=== PATIENT | female | born 1940 | race Caucasian/White ===

== ENCOUNTER 2016-09-24 17:01 | Inpatient (IN) | payer MEDICARE, OTHER ==
[~2016-09-24] VITALS: Ht 157.5 cm; Wt 71.7 kg
--- NOTE | ~2016-09-24 | NDGEN ---
PATIENT'S NAME: CONSUELO BOUDREAUX [facility] AGE: 76 Y [address] ROOM: [place] [address] LOCATION: GPCU ADMIT DATE: 09/24/2016 Neurodiagnostics DISCHARGE DATE: FAMILY PHYSICIAN: Crystal Bishop MD ATTENDING PHYSICIAN: Deniz Bolden PROCEDURE: ELECTROENCEPHALOGRAM DATE OF PROCEDURE: 09/27/2016 TEST: TECH: CLINICAL DIAGNOSIS: DURATION OF EE minute. REASON FOR EEG: Seizures. CLINICAL HISTORY: The patient is a 76-year-old female with history of hypertension, alcohol abuse, who was found to have seizure-like episodes and was found to have mental status changes and confusion with muscle stiffening. EEG FINDINGS: The patient is awake for majority of the EEG. During maximal activation background of about 9-10 hertz seen in the posterior head regions which is symmetrical rhythmical waxing and waning. Activation procedures included photic stimulation between 3-30 hertz, which did not show any abnormalities. The patient's EEG also showed excessive beta with more than 50 microvolts in the referential montage seen diffusely. CLASSIFICATION: Abnormal one, awake, 10/20 scalp electrodes. 1. Excessive beta. IMPRESSION: This EEG is mostly within normal limits, the excessive beta seen throughout the recording with secondary to use of medication such as benzodiazepines. Please correlate clinically. No epileptiform discharges or EEG seizures were seen during this recording. GURVINDER MURPHY MD RGELA/modl PATIENT'S NAME: CONSUELO BOUDREAUX [facility] AGE: 76 Y [address] ROOM: [place] [address] LOCATION: GPCU ADMIT DATE: 09/24/2016 Neurodiagnostics DISCHARGE DATE: FAMILY PHYSICIAN: Crystal Bishop MD ATTENDING PHYSICIAN: Deniz Bolden /[id number] dtt: 09/28/16 0651 , GURVINDER MURPHY dtd: 09/27/16 1718
--- NOTE | ~2016-09-24 | DS ---
PATIENT'S NAME: CONSUELO BOUDREAUX [facility] AGE: 76 Y [address] ROOM: [address] [place], [place] [address] LOCATION: GPCU ADMIT DATE: 09/24/2016 Discharge Summary DISCHARGE DATE: 09/27/2016 FAMILY PHYSICIAN: Crystal Bishop MD ATTENDING PHYSICIAN: Deniz Bolden ADMISSION DIAGNOSIS: Loss of consciousness, possible seizure. SECONDARY DIAGNOSES: 1. Mild hyponatremia. 2. Alcoholism. 3. Mild hypokalemia. 4. Non-anion gap metabolic acidosis. 5. Hypothyroidism. 6. Hypertension. 7. Hypomagnesemia. 8. Mildly elevated troponin. HOSPITAL COURSE: This is a pleasant 76-year-old female with minimal past medical history, who presented after being down by her . There was a question of seizure activity, although upon clarification of this, the patient was not witnessed to have tonic-clonic movements. However, she did have significant confusion post-arousal. This prompted admission and further evaluation for seizure. Upon presentation, the patient was noted to have been recently prescribed Bactrim, pertinent for potentially lowering seizure threshold. However, no obvious chemical nor structural abnormalities were able to be definitively blamed. She did have initial hyponatremia to 128, and has had her last alcoholic drink just less than 24 hours prior to arrival, drinking usually four to six beers per day without ever having history of withdrawal. Also, of note, potassium was 2.6 on admission, magnesium was 1.6, lactic acid was 4.6, and troponin was initially of 0.63. The patient denied any chest pain. This troponin elevation was deemed to be a type 2 NSTEMI secondary to hypovolemia and metabolic derangements noted above. The patient's hospital course was largely uneventful. 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 However, followup MRI did not re-demonstrate this aneurysm, and in fact, did not show other structural abnormalities which could have contributed to seizure. The patient, on date of discharge, did also have an EEG performed, which was essentially normal without any obvious predisposition towards seizure. With initial electrolyte replacement and IV fluid resuscitation, all metabolic derangements were rapidly corrected by morning following admission including sodium, which had corrected up to 135, potassium near 4, and magnesium well over 2. Lactic acidosis had also resolved at that time. No further concerns during hospital stay. The patient was seen in consultation by Neurology, and no epileptic medications were recommended following normal EEG. At conclusion PATIENT'S NAME: CONSUELO BOUDREAUX [facility] AGE: 76 Y [address] ROOM: [id number] [place], [place] [address] LOCATION: GPCU ADMIT DATE: 09/24/2016 Discharge Summary DISCHARGE DATE: 09/27/2016 FAMILY PHYSICIAN: Crystal Bishop MD ATTENDING PHYSICIAN: Deniz Bolden of hospital stay, etiology of seizure/syncope remains elusive. DISCHARGE INSTRUCTIONS: The patient was advised on driving restrictions for three months in the [facility] at the time of discharge, and advised to follow up with her PCP next week with repeat BNP at that time. Follow up labs with BMP in a week. MEDICATION CHANGES DURING STAY: 1. Discontinued Bactrim. 2. Discontinued hydrochlorothiazide. 3. Amlodipine was started for hypertension. CONDITION: Stable, see progress note date of discharge for most recent VS and exam DISPOSITION: The patient is safe to return home with her ; however, will be unable to drive for 3 months. TIME: I spent 35 minutes on date of discharge coordinating discharge as well as in direct patient care. MD SUELLEN TAVERAS/rasheed /[id number] d: 09/28/16 0320 t: 09/28/16 1433, DISCHARGE SUMMARY
--- NOTE | ~2016-09-24 | CON ---
PATIENT'S NAME: CONSUELO BOUDREAUX [facility] AGE: 76 Y [address] ROOM: [place] [address] LOCATION: GPCU ADMIT DATE: 09/24/2016 Consultation DISCHARGE DATE: FAMILY PHYSICIAN: Crystal Bishop MD ATTENDING PHYSICIAN: Deniz Bolden DATE OF CONSULTATION: 09/25/2016 REFERRING PHYSICIAN: JUSTICE BOOGIE TIME: 8:25 a.m. CHIEF COMPLAINT: Seizure. HISTORY OF PRESENT ILLNESS: This is a delightful female who is 76 years old. Her past medical history includes hypertension, hypothyroidism, and alcohol abuse. Apparently yesterday, she had a seizure that was witnessed by her . Her heard a shout made by his and when he went into the room he found the patient to be in altered mental status and confusion with muscle stiffening. The episode lasted around 5 minutes and the patient was confused and tired afterwards. They did call EMS, and the did state her upper extremities were stiff. There was no tongue biting or urinary incontinence during this event. The last thing the patient remembers is watching Judge Mckeon. The patient has a long history of alcohol abuse and usually drinks up to six beers a day. She had no alcohol the day of the seizure. She was quite warm that day, so she was drinking a lot a water and soda. She drink about 5- 6 bottles of water and soda that day. She has no history of seizure. She has no history of withdrawal symptoms. She has no fevers, chills, neck stiffness, change in vision, nausea, vomiting, abdominal pain, diarrhea, or chest pain. She has never had weakness on one side of the other. PAST MEDICAL HISTORY: 1. Hypertension. 2. Hypothyroidism. 3. Alcohol abuse. SURGICAL HISTORY: Hysterectomy and cyst removal in breast, left breast abscess drainage done a few days ago at [facility]. FAMILY HISTORY: Her mother had a history of stroke and father has a history of alcohol abuse and seizure. PATIENT'S NAME: CONSUELO BOUDREAUX [facility] AGE: 76 Y [address] ROOM: [place] [address] LOCATION: GPCU ADMIT DATE: 09/24/2016 Consultation DISCHARGE DATE: FAMILY PHYSICIAN: Crystal Bishop MD ATTENDING PHYSICIAN: Deniz Boledn SOCIAL HISTORY: She denies smoking. 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 MEDICATIONS: Home medications are on the chart and reviewed by me. Of note, the patient is on Ambien 10 mg nightly. She had taken a vacation from this a couple months ago, but is currently receiving her Ambien. REVIEW OF SYSTEMS: All systems were reviewed and are negative except as mentioned in the HPI. PHYSICAL EXAMINATION: VITAL SIGNS: Afebrile, blood pressure 145/62, heart rate is 74, respiratory rate of 18, and saturating 96% on room air. GENERAL APPEARANCE: The patient is alert and awake in no acute distress. HEENT: Normocephalic, atraumatic. Eyes, extraocular muscles intact. HEART: Regular rate and rhythm. No murmurs, rubs, or gallops. ABDOMEN: Soft, nontender, nondistended with positive bowel sounds. NEURO: She is alert and oriented x3. She has no memory of the event, but is a good historian. Motor strength is 5/5 upper and lower. Sensory is intact to light touch. Cranial nerves 2 through 12 are intact bilaterally. No focal deficits. LABS: Sodium of [address] does show a basilar tip aneurysm, measuring approximately 5-6 mm. ASSESSMENT AND PLAN: 1. Seizure. The patient is presenting with one episode of seizure with tonic movements and postictal confusion. She has returned to baseline. This may be a withdrawal seizure from alcohol because she was without alcohol for 24 hours. Hyponatremia is less likely the cause because her sodium was 128. 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 The patient is currently on scheduled Valium and the CIWA protocol. We will acquire an MRI of the brain and an MRA of the brain to evaluate further. The patient also needs an EEG; however, this will not be available until Tuesday. No AED is indicated at this time. 2. Hyponatremia. This could be due to hydrochlorothiazide use or beer potomania. The hospitalist team is holding her hydrochlorothiazide. I doubt that the hyponatremia is responsible for the seizure. 3. Alcohol abuse. The patient is on a CIWA protocol with scheduled Valium. I would like to thank you for the opportunity to participate in this patient's care. The plan of care was developed with Dr. Duvall. We will certainly follow up on test results tomorrow as we need more information PATIENT'S NAME: CONSUEOL BOUDREAUX [facility] AGE: 76 Y [address] ROOM: [id number] [place], [place] [address] [facility] ADMIT DATE: 09/24/2016 Consultation DISCHARGE DATE: FAMILY PHYSICIAN: Crystal Bishop MD ATTENDING PHYSICIAN: Deniz Bolden to make further recommendations. The plan of care was developed with Dr. Duvall who examined the patient with me. Please notify us, if you have any questions. EASTON MIRANDA APRN FOR CRISTOPHER DUVALL MD PP/rasheed /[id number] d: 09/25/16 1155 t: 09/28/16 1841, CONSULTATION REPORT
--- NOTE | ~2016-09-24 | ER ---
PATIENT'S NAME: CONSUELO BOUDREAUX [facility] AGE: 76 Y [address] ROOM: [place] [address] LOCATION: GPCU ADMIT DATE: 09/24/2016 ER/Outpatient Report DISCHARGE DATE: FAMILY PHYSICIAN: Crystal Bishop MD ATTENDING PHYSICIAN: Deniz Bolden Time of Arrival: 1701 hours. Time of Evaluation: 1707 hours. IDENTIFICATION: A 76-year-old female. CHIEF COMPLAINT: Confusion. HISTORY OF PRESENT ILLNESS: The patient was in another room from her just around the corner when he heard her screaming and came around the corner, and she was stiff and not responding, so 911 was called. I am not able to obtain history from the patient. She is not able to tell us what happened. She was pretty confused when EMS arrived, but is a little bit more coherent and answering questions better, but still not her usual self at this point. She did not bite her tongue. No loss of bowel or bladder. No previous episodes like this in the past. Her says she does drink 1 to 6 beers per day and at one point he said she did not have any for a couple of days, but then he said she did have one yesterday. She has never had any withdrawal symptoms in the past. She has not fallen or hit her head. ALLERGIES: NO KNOWN DRUG ALLERGIES. CURRENT MEDICATIONS: 1. Bactrim DS for recent left breast abscess. 2. Atorvastatin 20 mg daily. 3. Levothyroxine 75 mcg daily. 4. Omeprazole 20 mg daily. 5. KCl 20 mEq 2 tablets daily, which she has only been taking 1 daily apparently. 6. Ambien 10 mg at bedtime. 7. Trimethoprim mg daily. 8. Singulair 10 mg daily. 9. Hydrochlorothiazide 25 mg q.a.m. 10. Metoprolol ER 50 mg daily. 11. She also takes some sort of a sleeping pill p.r.n., but her does not like her to take it, so she said she does not take it all the time, PATIENT'S NAME: CONSUELO BOUDREAUX [facility] AGE: 76 Y [address] ROOM: [place] [id number] [facility] ADMIT DATE: 09/24/2016 ER/Outpatient Report DISCHARGE DATE: FAMILY PHYSICIAN: Crystal Bishop MD ATTENDING PHYSICIAN: Deniz Bolden but she has been taking it recently. MEDICAL PROBLEMS: UTI, hypothyroidism, allergic rhinitis, heart disease, hypertension, left breast abscess, insomnia, and constipation. PRIOR SURGERIES: Left breast abscess biopsy, facial cyst, hysterectomy, and back surgery. SOCIAL HISTORY: The patient lives here in [place] with her . Her daughter works here in the hospital. Tobacco use, denies. Alcohol use, 1 to 6 beers per day. Drug use, denies. FAMILY HISTORY: Mother had a stroke later in life. REVIEW OF SYSTEMS: All systems reviewed and as noted in the HPI. She denies any chest pain other than some soreness where the breast was drained a few days ago. PHYSICAL EXAMINATION: VITAL SIGNS: Weight 71.7 kg, blood pressure 148/70, pulse 95, respirations 20, temperature 99.9, and saturations 96% on room air. GENERAL: This is a 76-year-old female, who is alert and oriented at this time to person, place, and time, but not to situation. NEURO: Cranial nerves II through XII grossly intact. Motor strength 5/5 throughout. Sensation is intact to light touch. EYES: Pupils equal and reactive to light and accommodation. Extraocular movements intact. NOSE: Mucosa pink. No lesions. MOUTH: No lesions. Pharynx benign. NECK: Supple. No lymphadenopathy. LUNGS: Clear to auscultation. HEART: Regular rate and rhythm. ABDOMEN: Soft, nondistended, and nontender. SKIN: [place], warm, and dry. The patient has an area where her left breast was I and D'd. It looks a little bit ecchymotic, but no surrounding erythema. It is not warm. Minimally tender. NEURO: As noted above. No calf tenderness. LABORATORY DATA AND X-RAYS: Sodium 128, potassium 2.6, chloride 93, CO2 of 20, BUN 8, creatinine 1.1, blood sugar 158. Liver enzymes normal. Magnesium 1.6. CK 193. CK-MB 3.8. Troponin I 0.063. Procalcitonin less than 0.05. Lactate elevated at 4.6. PATIENT'S NAME: CONSUELO BOUDREAUX [facility] AGE: 76 Y [address] ROOM: [facility] [place], [place] [address] [facility] ADMIT DATE: 09/24/2016 ER/Outpatient Report DISCHARGE DATE: FAMILY PHYSICIAN: Crystal Bishop MD ATTENDING PHYSICIAN: Deniz Bolden Hemoglobin 11.9, hematocrit 33, platelets 224, and white count 7.3 with a normal differential. INR 0.97. UA negative. Urine culture pending. Blood cultures x2 pending. EKG showed nonspecific ST-T wave changes, no acute ST elevation or depression. Chest x-ray showed no acute process, pending Radiology over-read. Head CT without contrast showed prominence of the basilar tip raising the question of aneurysm, measuring 5.6 mm. Correlation with the MRA or CTA may be helpful. No evidence of acute ischemia or hemorrhage. IMPRESSION: 1. Acute confusional episode, suspicious for possible seizure with postictal state, that is improving. The patient does have the question of aneurysm on the head CT. The patient will be admitted per Dr. Bolden, morganist. 2. Hyponatremia. 3. Hypokalemia. KCl has been ordered 40 mEq and 250 of normal saline to run over 4 hours. 4. Alcohol abuse. Banana bag to run over 4 hours. 5. Possible [id number] myocardial infarction with elevated cardiac enzymes. The patient has nonspecific ST-T wave changes and no acute pain at this time. We will trend enzymes. The patient will be admitted to PCU per Dr. Bolden, morganist. AZAEL AUGUST MD CAR/modl /[id number] d: 09/25/16 0007 t: 09/28/16 0913, OUTPATIENT REPORT
--- NOTE | ~2016-09-24 | CON ---
PATIENT'S NAME: CONSUELO BOUDREAUX [facility] AGE: 76 Y [address] ROOM: [id number] [place], [place] [address] LOCATION: GPCU ADMIT DATE: 09/24/2016 Consultation DISCHARGE DATE: FAMILY PHYSICIAN: Crystal Bishop MD ATTENDING PHYSICIAN: Deniz Bolden DATE OF CONSULTATION: 09/25/2016 REFERRING PHYSICIAN: JUSTICE BOOGIE REFERRING PHYSICIAN: Svetlana Ordonez MD. REASON FOR CONSULTATION: Hyponatremia and MARIYA. HISTORY OF PRESENT ILLNESS: A 76-year-old lady with history of hypertension, hypothyroidism, and alcohol abuse, admitted with generalized tonic-clonic seizure, found to have a sodium of 128 and a creatinine of 1.1. Nephrology consultation has been called for above-mentioned reason. As per the , they were drinking yesterday and patient went to see Judge Mckeon on TV in that room and found to have agonizing shouts made by his , found to have altered mental status, confusion with muscle stiffening, especially in the upper extremities. No tongue bite or urinary incontinence during that event. EMS was called in. The patient was brought for further evaluation. Apparently, she has a long history of alcohol abuse. She drinks up to 6 beers a day. Last drink was yesterday. The sodium was 128, and the concern was that the hyponatremia was causing the seizure and altered mental status. However, the patient's mental status improved somewhat afterwards during the initial evaluation and although we do not have any previous record of serum chemistry in the recent time, but serum sodium of 128 found to be really mild to cause significant neurological symptoms. She was placed on total fluid restriction of 1.5 L and urine lytes and serum workup has been sent and today in the morning serum sodium has improved to 135 and creatinine improved to 0.8. During my evaluation, she is alert and oriented x4. Has no new complaints. No further seizure activity. Denies any chest pain, shortness of breath, orthopnea, or PND. No nausea, vomiting, abdominal pain, or diarrhea. The patient does not remember the event. PAST MEDICAL HISTORY: Hypertension, hypothyroidism, and alcohol abuse. SURGICAL HISTORY: Hysterectomy and cyst removal in breast, left breast abscess drainage done a few days ago at [facility]. FAMILY HISTORY: Her mother had a history of stroke and father has a history of alcohol abuse and seizure. SOCIAL HISTORY: She denies smoking. 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 ROOM: [id number] [place], [place] [address] [facility] ADMIT DATE: 09/24/2016 Consultation DISCHARGE DATE: FAMILY PHYSICIAN: Crystal Bishop MD ATTENDING PHYSICIAN: Deniz Bolden MEDICATIONS: Currently being reconciled; however, the report from her shows that the patient is on, 1. Toprol-XL 50 mg p.o. daily. 2. Synthroid 75 mcg p.o. daily. 3. Potassium chloride 40 mEq p.o. daily. 4. Atorvastatin, Lipitor 20 mg p.o. daily. 5. Ambien 10 mg p.o. q.h.s. for sleeping. 6. Singulair 10 mg p.o. q.h.s. 7. Omeprazole 20 mg p.o. daily. 8. Bactrim DS one tablet p.o. b.i.d. after the breast abscess drained. 9. Hydrochlorothiazide 25 mg p.o. daily. REVIEW OF SYSTEMS: GENERAL: No fever. No chills or rigor. HEENT: No sore throat. No sinus congestion. CVS: No chest pain. No exertional shortness of breath. No leg swelling. RESPIRATORY: No shortness of breath. No cough. No wheezing. GENITOURINARY: No pain with urination. No increased frequency. No nocturia. GASTROINTESTINAL: No abdominal pain. No abdominal distention. No nausea or vomiting. NEUROLOGIC: No weakness. No seizures. SKIN: No rash. No itching. ALLERGIES: No seasonal allergy. No hayfever. ENDOCRINE: No heat intolerance. No cold intolerance. PSYCHIATRIC: No sadness. No crying spells. No history of panic attack. PHYSICAL EXAMINATION: VITAL SIGNS: Blood pressure 120/60, pulse 70, respiratory rate 12, 98.2 degrees Fahrenheit, and saturating at 95% on room air. GENERAL: Not in apparent distress. HEAD: Moist mucous membranes. Bilateral PERRLA, EOMI. NECK: No JVD, thyromegaly or lymphadenopathy. CVS: S1 and S2 normal, regular rate and rhythm. No murmur, rub, gallop. CHEST: Bilateral air entry equal. No wheeze or rales. ABDOMEN: Soft, nontender, nondistended. Bowel sounds present. EXTREMITIES: No cyanosis, clubbing, jaundice. No dependent edema. MUSCULOSKELETAL: No limitation of range of motion. SKIN: No pallor, cyanosis, icterus. J2EE DEVELOPER: Alert and oriented x3. No gross findings. LABORATORY EVALUATION: Serum sodium was 128 on admission which improved to 135 this morning. Potassium was 2.6 on admission, now 3.7; bicarbonate was 20 on admission, now 24; chloride 93 on admission; BUN 8 and creatinine of 1.1, which improved to 0.8 today; glucose 108; calcium 8.7. Hemoglobin 11.9, WBC count 7.3. PATIENT'S NAME: CONSUELO BOUDREAUX [facility] AGE: 76 Y [address] ROOM: [place] [address] LOCATION: GPCU ADMIT DATE: 09/24/2016 Consultation DISCHARGE DATE: FAMILY PHYSICIAN: Crystal Bishop MD ATTENDING PHYSICIAN: Deniz Bolden ASSESSMENT/PLAN: 1. Seizure activity, possibly generalized tonic-clonic seizure, currently alert oriented x4. Neurological examination is grossly intact. Possibly from alcohol withdrawal. Unlikely to be related to hyponatremia as hyponatremia is quite mild and I do not feel the sodium of 128 can cause seizure, now has improved to 135. The patient has mentioned that there was no further episodes of seizure after admission or before this event. 2. Basilar brain aneurysm of 5.[address] scan. We will defer to the primary team, possible need for an MRI of brain without contrast and MRA. 3. Euvolemic hypotonic hyponatremia, possibly secondary to low osmolar intake in a patient with alcohol abuse or beer potomania. Sodium has improved significantly overnight, just with total fluid restriction of 1.5 L and increase osmole intake. We will encourage the patient to have double protein diet and included total fluid restriction at 1.5 L, which include anything liquid or anything that can melt into liquid. Also, the patient noted to be on hydrochlorothiazide and Bactrim. We will hold both as both can precipitate a mild hyponatremia. 4. Acute kidney injury. Possibly seizure related. Creatinine was 1.1 on admission. Reasonable urine output overnight about 800 mL, now creatinine improved to 0.8. We will continue to monitor for now. 5. Hypertension. Blood pressure is currently adequately controlled. We do not need any hydrochlorothiazide at this point. If needed, we will avoid hydrochlorothiazide and we will go for an amlodipine may be at 5 mg per day dose. 6. Hypomagnesemia. Possibly due to alcohol abuse. Magnesium has been supplemented overnight. We will continue to monitor. 7. Alcohol abuse. She is on CIWA protocol. Possible need for thiamine. 8. Hypothyroidism. Continue Synthroid. 9. Mild anion gap metabolic acidosis with lactic acidosis, improved significantly with conservative management. Possible etiology is due to seizure and thiamine deficiency. We will continue to monitor. Thank you for allowing me to participate in this patient's care. We will closely monitor the patient's progress along with you. JUSTICE BOOGIE MD /modl /[id number] d: 09/25/16 1259 t: 10/09/16 0921, CONSULTATION REPORT
--- NOTE | ~2016-09-24 | HP ---
PATIENT'S NAME: CONSUELO BOUDREAUX [facility] AGE: 76 Y [address] ROOM: [place] [id number] LOCATION: GPCU ADMIT DATE: 09/24/2016 History & Physical DISCHARGE DATE: FAMILY PHYSICIAN: Crystal Bishop MD ATTENDING PHYSICIAN: Deniz Bolden DATE OF SERVICE: CHIEF COMPLAINT: Seizure. HISTORY OF PRESENT ILLNESS: The patient is a 76-year-old female with past medical history of hypertension, hypothyroidism, and alcohol abuse, who presents here with seizure. According to , the patient and her were and drinking water. The patient went to see [employer] TV on the other room. heard agonizing shouts made by his , and as soon as he went to the room, he found the patient to be in altered mental status and confusion with muscle stiffening. reports that this episode lasted 5 minutes and the patient was confused after she regained consciousness. reports that her upper extremities were stiff. He denied any tongue biting or urinary incontinence during this event. EMS was called in and the patient was brought in for further evaluation. The patient has a long history of alcohol abuse, reports that she drinks up to 6 beers a day. Reports that last drink was yesterday. However, today they were feeling hot and were drinking water and pop. She reports that she drank 5-6 bottle of water and pop. She denies any history of seizure in the past. The patient also denies any withdrawal symptom. The patient also denies fever, chills, neck stiffness, change in vision, nausea, vomiting, abdominal pain, diarrhea, or chest pain. The patient does not remember the episode of her seizure-like activity. MEDICAL HISTORY: Hypertension, hypothyroidism, and alcohol abuse. SURGICAL HISTORY: Hysterectomy, cyst removal in breast, left breast abscess drainage done a few days ago at [facility], and back surgery. FAMILY HISTORY: Mother has a history of stroke and father has a history of alcohol abuse and seizure. SOCIAL HISTORY: Denies smoking. 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 PATIENT'S NAME: CONSUELO BOUDREAUX [facility] AGE: 76 Y [address] ROOM: [place] [address] LOCATION: GPCU ADMIT DATE: 09/24/2016 History & Physical DISCHARGE DATE: FAMILY PHYSICIAN: Crystal Bishop MD ATTENDING PHYSICIAN: Deniz Bolden MEDICATIONS: Currently being reconciled. REVIEW OF SYSTEMS: All systems have been reviewed and are negative except for what I mentioned in the HPI. PHYSICAL EXAMINATION: VITAL SIGNS: Afebrile, blood pressure 165/69, heart rate of 75, respiratory rate of 17, and satting 95% on room air. GENERAL APPEARANCE: The patient is alert and awake, in no acute distress. HEAD: Normocephalic, atraumatic. EYES: Extraocular muscles intact. MOUTH: Moist oral mucosa. CHEST: Clear to auscultation bilaterally. NOSE: No nasal discharge. EARS: No ear discharge. HEART: Regular rate and rhythm. No murmurs, rubs, or gallops. ABDOMEN: Soft, nontender, and nondistended. Bowel sounds present. SKIN: Warm to touch. MUSCULOSKELETAL: Range of motion intact. No obvious joint effusion. CHLORINE OPERATOR: Alert and oriented x3. Motor and sensory grossly intact. LABS: INR of 0.97. Sodium 128, creatinine 1.1, potassium of 2.6, chloride of 93, and CO2 of 20. Normal AST and ALT level and magnesium 1.6. White blood cell count of 7.3, hemoglobin of 11.9, hematocrit of 33, and platelet of 224. Troponin of 0.63. Lactate of 4.6. CT shows prominence of the basilar tip raising the question of aneurysm measuring 5.6 mm. No evidence of acute ischemia or hemorrhage. ASSESSMENT AND PLAN: 1. Seizure. The patient is presenting with 1 episode of seizure with tonic and postictal confusion. The patient is currently alert and oriented x3. Motor and sensory grossly intact. Etiology currently unknown. Possible etiology can be withdrawal from alcohol; however, I highly doubt this might be the cause as the patient had a drink yesterday and did not have any other alcohol withdrawal stigmata that preceded the surgery. Hyponatremia is also entertained, but however, her sodium level is 128 and highly doubt it if Sodium of 128 can cause seizure. We will acquire lab results from outside hospital to compare if there is any sudden drop. 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 It is interesting to further delineate and investigate this lesion. We will acquire MRI of brain without contrast and also MRI of brain with contrast PATIENT'S NAME: CONSUELO BOUDREAUX [facility] AGE: 76 Y [address] ROOM: [id number] [place], [place] [id number] [facility] ADMIT DATE: 09/24/2016 History & Physical DISCHARGE DATE: FAMILY PHYSICIAN: Crystal Bishop MD ATTENDING PHYSICIAN: Deniz Bolden to further investigate this vascular malformation or if there is any mass. We will acquire EEG. We will keep the patient on seizure precaution. 2. Hyponatremia. Etiology secondary to hydrochlorothiazide use and/or beer potomania. We will hold hydrochlorothiazide. We will acquire urine electrolytes and serum osmolarity. We will keep the patient on 1.5 L fluid restriction. We will discontinue current banana bag that is surrounding that was given in the emergency department. I will try to feed the patient while she is here. We will follow sodium closely. Also, discuss case with Dr. Hair or Nephrology. 3. Hypokalemia, etiology most likely secondary to hydrochlorothiazide use. We will discontinue hydrochlorothiazide. We will give potassium and follow CMS level. 4. Hypomagnesemia, etiology secondary to hydrochlorothiazide use and also alcohol abuse. We will supplement magnesium. 5. Alcohol abuse. We will put the patient on CIWA protocol. We will discontinue banana bag due to fluid restriction and will start thiamine 100 mg daily. 6. Hypothyroidism. Continue medication. 7. Elevated troponin, etiology most likely secondary to NSTEMI type 2 due to demand. The patient denies of any chest pain. We will acquire EKG and follow the patient clinically. 8. Anion gap acidosis with anion gap of 15. Etiology secondary to lactic acidosis. Etiology due to seizure and/or thiamine deficiency. We will trend lactate level until it is normalized. Greater than 70 minutes was spent on the patient's care. Assessment and plan was discussed with the patient. Greater than 50% of the time was spent on direct patient care and consultation with the Nephrology. Also, case was discussed with ER physician. We will admit the patient as inpatient for seizure and code status was discussed on admission. Code status, full code. MD VENITA JIMENEZ/modl /[id number] D: [id number] T: [id number] HISTORY & PHYSICAL
[~2016-09-24 17:01] MED LIST changes: -BACTRIM DS1 TAB PO; -HYDRODIURIL25 MG PO; -MIRALAX17 GM PO; -NORVASC5 MG PO; -THIAMINE HCL100 MG PO; -TRIMETHOPRIM100 MG PO
[2016-09-24 17:30] LABS: BILIRUBIN URINE NEGATIVE (NEGATIVE); BLOOD URINE 25 /UL (NEGATIVE); COLOR URINE YELLOW (YELLOW); GLUCOSE URINE NEGATIVE (NEGATIVE); KETONE URINE 15 mg/dL (NEGATIVE); LEUKOCYTES URINE NEGATIVE /UL (NEGATIVE); NITRITE URINE NEGATIVE (NEGATIVE); PROTEIN URINE 100 mg/dL (NEGATIVE); TURBIDITY URINE CLEAR (CLEAR); UROBILINOGEN URINE NORMAL (NORMAL)
[2016-09-24 17:39] LABS: WBC URINE NEGATIVE #/HPF (NEGATIVE)
[2016-09-24 17:40] LABS: BACTERIA URINE RARE (NEGATIVE); EPITHELIAL URINE 0-2 #/HPF (NEGATIVE); HYALINE CAST URINE 0-2 #/LPF (NEGATIVE); MUCUS URINE 1+ (NEGATIVE)
[2016-09-24 17:56] LABS: BASOPHIL % 0.3 %; EOSINOPHIL % 0.1 %; HEMOGLOBIN 11.9 g/dL (10.0-15.0); IMMATURE GRANULOCYTE % 0.4 %; LYMPHOCYTE # 0.8 K/uL (0.8-4.0); LYMPHOCYTE % 10.3 %; MCH 33.1 pg (27.0-34.0); MCHC 36.1 gm/dL (32.0-36.5); MCV 91.7 fl (83.0-98.0); MONOCYTE # 0.4 K/uL (0.0-1.0); MONOCYTE % 5.9 %; MPV 9.4 fl (9.4-12.4); NRBC % 0 /100WBC (0-0.00); PLATELET COUNT 224 K/uL (150-450); RDW-CV 11.9 % (11.9-14.6); WBC 7.3 K/uL (4.0-11.0)
[2016-09-24 18:05] LABS: INR - (THERAPEUTIC) 0.97 (0.92-1.07); PROTIME 10.2 SECONDS (9.8-11.4); PTT 24 SECONDS (25-32)
[2016-09-24 18:20] LABS: ALBUMIN 3.9 gm/dL (3.5-5.0); CALCIUM 8.7 mg/dL (8.5-10.5); CREATININE 1.1 mg/dL (0.5-1.1); MAGNESIUM 1.6 mg/dL (1.8-2.6); TOTAL BILIRUBIN 0.7 mg/dL (0.0-1.5); TOTAL PROTEIN 7.6 g/dL (6.0-8.4)
[2016-09-24 18:23] LABS: ANION GAP 17.6 (10.0-19.0); POTASSIUM 2.6 mMol/L (3.7-5.1)
[2016-09-24] MEDS ORDERED: BACTRIM DS1 TAB PO (20:26)
[2016-09-24] MEDS ORDERED: HYDRODIURIL25 MG PO (20:27)
[2016-09-24] MEDS ORDERED: TRIMETHOPRIM100 MG PO (20:28)
[2016-09-24 22:24] LABS: OPIATES NEGATIVE (NEGATIVE)
[2016-09-24 22:25] LABS: AMPHETAMINE NEGATIVE (NEGATIVE); BARBITURATE NEGATIVE (NEGATIVE); COCAINE NEGATIVE (NEGATIVE)
[2016-09-25 03:41] LABS: ALBUMIN 3.9 gm/dL (3.5-5.0); CALCIUM 8.7 mg/dL (8.5-10.5); CREATININE 0.8 mg/dL (0.5-1.1); MAGNESIUM 2.5 mg/dL (1.8-2.6); TOTAL BILIRUBIN 0.8 mg/dL (0.0-1.5); TOTAL PROTEIN 7.3 g/dL (6.0-8.4)
[2016-09-25 03:42] LABS: ANION GAP 12.7 (10.0-19.0); POTASSIUM 3.7 mMol/L (3.7-5.1)
[2016-09-26 04:39] LABS: ALBUMIN 3.7 gm/dL (3.5-5.0); ANION GAP 13.7 (10.0-19.0); CALCIUM 8.9 mg/dL (8.5-10.5); CREATININE 0.9 mg/dL (0.5-1.1); POTASSIUM 3.7 mMol/L (3.7-5.1); TOTAL BILIRUBIN 0.7 mg/dL (0.0-1.5); TOTAL PROTEIN 7.3 g/dL (6.0-8.4)
[2016-09-27 04:19] LABS: ALBUMIN 3.4 gm/dL (3.5-5.0); ANION GAP 13.2 (10.0-19.0); CREATININE 0.8 mg/dL (0.5-1.1); POTASSIUM 4.2 mMol/L (3.7-5.1); TOTAL PROTEIN 6.8 g/dL (6.0-8.4)
[2016-09-27 04:20] LABS: TOTAL BILIRUBIN 0.4 mg/dL (0.0-1.5)
[2016-09-27] MEDS ORDERED: MIRALAX17 GM PO (16:58)
[2016-09-27] MEDS ORDERED: THIAMINE HCL100 MG PO (16:59)
[2016-09-27] MEDS ORDERED: NORVASC5 MG PO (17:01)
== END 2016-09-27 17:35 | disposition disaster alternative care site (69) | DRG 896 ==
LOC: GMED 17:01 → GPCU 18:53
PROVIDERS: Family Medicine; Internal Medicine; ADMIT Family Medicine
DX: F10.239 Alcohol dependence with withdrawal, unspecified (principal); I21.4 Non-ST elevation (NSTEMI) myocardial infarction; N17.9 Acute kidney failure, unspecified; E87.2 Acidosis; I67.1 Cerebral aneurysm, nonruptured; E51.9 Thiamine deficiency, unspecified; E87.1 Hypo-osmolality and hyponatremia; E03.9 Hypothyroidism, unspecified; E83.42 Hypomagnesemia; I10 Essential (primary) hypertension; R74.8 Abnormal levels of other serum enzymes; E87.6 Hypokalemia
CPT/HCPCS: G0480; J2405; J3411; J3475; J3480; J7030; J7050

== ENCOUNTER → 2016-09-24 | Outpatient (CLI) | payer MEDICARE, OTHER ==
[~2016-09-24] MED LIST: ALLEGRA180 MG PO; AMBIEN10 MG PO; BACTRIM DS1 TAB PO; HYDRODIURIL25 MG PO; K-TAB ER20 MEQ PO; LEVOTHROID(SYN75 MCG PO; LIPITOR20 M1 PO; MIRALAX17 GM PO; NORVASC5 MG PO; PRILOSEC10 MG PO; PRILOSEC20 MG PO; PROAIR HFA8.5 GM INH; PROAIR RESPICL90 MCG INH; SINGULAIR10 MG PO; THIAMINE HCL100 MG PO; TOPROL XL 5050 MG PO; TRIMETHOPRIM100 MG PO
== END | disposition disaster alternative care site (69) ==
LOC: GAMB 16:27
DX: R41.82 Altered mental status, unspecified (principal); R10.84 Generalized abdominal pain; R10.13 Epigastric pain
CPT/HCPCS: A0422; A0425; A0427; J2405